=== PATIENT | female | born 1980 | race Caucasian/White ===

== ENCOUNTER 2020-09-09 06:42 | Observation (INO) | payer BC, SELFPAY ==
[2020-09-09] VITALS (10 sets, daily range): BP systolic 116–178; BP diastolic 61–86; PULSE 65–88; RESP 16–22; TEMP 36.6–36.8; O2SAT 94–100; BMI 47.9; BMI 48.6
--- NOTE | 2020-09-09 07:12 | CT_ITS ---
PROCEDURE: CT ABDOMEN PELVIS W CON CLINICAL INDICATION: pain Mid epigastric pain COMPARISON: CT ABDPELW/O CT ABD PELVIS W/O CONTRAST from 01/02/2017 TECHNIQUE: IV Contrast: 75ML Isovue 370 Oral Contrast None Axial images obtained with sagittal and coronal reformats. All CT scans at the facility use one or more dose reduction, viz: automated exposure control, ma/kV adjustment per patient size (including targeted exams where dose is matched to indication, i.e. head), or iterative reconstruction technique. FINDINGS: LOWER THORAX: There are scattered sub cm pulmonary nodules in the right middle lobe and both lower lobes.. The nodules measure up to 7 mm which is in the lingula and appears slightly more prominent compared to 01/02/2017. The right middle lobe nodules were not imaged on the previous exam. ABDOMEN & PELVIS: There are gallstones present. The gallbladder is slightly distended. The spleen, adrenal glands, and pancreas have an unremarkable appearance. No renal or ureteral calculi. The left kidney is somewhat smaller than the right kidney but the cortex is well preserved. The right kidney measures 11 cm cephalad caudad in the left kidney measures 8 cm cephalad caudad. No hydronephrosis. No ureteral calculi. There is some cortical scarring of the left kidney laterally. No evidence of appendicitis. No intestinal obstruction or free air. There are bilateral ovarian cysts measuring 6 cm on the left. There is a tubular density in the right adnexa. This could be related to a elongated ovarian cyst at 7 by 2.4 cm however, dilated fallopian tube/hydrosalpinx is also considered. This is slightly more prominent when compared to the previous exam. No evidence of diverticulitis. Pelvic ultrasound may provide further evaluation. No stranding of the fat in this area. No pelvic free fluid apparent. There is grade 1 spondylitic spondylolisthesis of L5 on S1 with degenerative disc disease at that level. No acute bony findings. IMPRESSION: 1. Scattered sub cm pulmonary nodules. Nonemergent chest CT may provide further evaluation. 2. No evidence of appendicitis obstructing ureteral calculus or diverticulitis. 3. Possible right-sided hydrosalpinx. Pelvic ultrasound may provide further evaluation. 4. 6 cm left ovarian cyst 5. Cholelithiasis with mildly distended gallbladder Dictated by: Kyaw Almonte MD 09/09/2020 08:36 Kyaw Almonte MD in [place] 09/09/2020 08:36
[2020-09-09 07:16] LABS: Microscopic, Urine URINE MICROSCOPIC (MICROSCOPIC)
[2020-09-09 07:20] LABS: Basophils # 0.1 K/mm3 (0-0.2); Basophils % 0.7 % (0.1-2.0); Eosinophils # 0.3 K/mm3 (0.0-0.4); Eosinophils % 2.9 % (0.1-12.0); Hematocrit 40.9 % (37.0-47.0); Hemoglobin 13.2 g/dL (12.2-16.2); Lymphocytes # 2.1 K/mm3 (0.7-4.5); Lymphocytes % 21.8 % (10-50); Mean Corpuscular HGB Conc 32.4 g/dL (31.8-35.4); Mean Corpuscular Hemoglobin 28.5 pg (27.0-31.2); Mean Platelet Volume 7.8 fl (7.4-10.4); Monocytes # 0.4 K/mm3 (0.1-1.0); Monocytes % 3.8 % (1.7-9.3); Neutrophils # 6.8 K/mm3 (1.8-7.8); Neutrophils % 70.8 % (37.0-80.0); Platelet Count 300 K/mm3 (142-424); Red Blood Count 4.65 M/mm3 (4.20-5.40); White Blood Count 9.6 K/mm3 (4.8-10.8)
[2020-09-09 07:24] LABS: Appearance,Urine CLEAR (Clear); Bilirubin,Urine Negative (Negative); Blood, Urine Negative (Negative); Color,Urine YELLOW (Yellow); Glucose,Urine (UA) Negative (Negative); Ketones,Urine TRACE (Negative); Leukocyte Esterase,Urine Negative (Negative); Nitrate,Urine Negative (Negative); Protein,Urine Negative (Negative); Urobilinogen,Urine 0.2 EU/dl (0.2)
[2020-09-09 07:26] LABS: Alanine Aminotransferase 31 U/L (12-78); Albumin Level 4.6 g/dl (3.5-5.0); Albumin/Globulin Ratio 1.2 (1.1-1.8); Alkaline Phosphatase 76 U/L (38-126); Amylase 68 U/L (30-110); Anion Gap 8.2 mEq/L (5-15); Aspartate Amino Transferase 27 U/L (14-36); Bilirubin,Total 0.3 mg/dl (0.2-1.3); Blood Urea Nitrogen 13 mg/dl (7-17); Calcium 9.7 mg/dl (8.4-10.2); Carbon Dioxide 28 mmol/L (22.0-30.0); Chloride 101 mmol/L (98-107); Creatinine Clearance Estimated 83 mL/min (50-200); Estimated Glomerular Filt Rate 69 ml/min (>60); GFR (African American) 83 ML/MIN (>60); Globulin 3.7 g/dL (1.3-3.2); Glucose 118 mg/dl (74-100); Lipase 132 U/L (23-300); Potassium 3.2 mmoL/L (3.5-5.1); Sodium 134 mmol/L (136-145); Total Protein,Serum 8.3 g/dl (6.3-8.2)
[2020-09-09 07:31] LABS: RBC,Urine Occasional #/hpf (0-3)
[2020-09-09 07:55] LABS: Urine Pregnancy, HCG Qual. Negative (Negative)
--- NOTE | 2020-09-09 08:00 | HMH.EDGENADL ---
ED Disposition Clinical Impression: Gallstones and inflammation of gallbladder without obstruction Disposition: Admitted as Observation Condition on Discharge: Fair Instructions: DI for Acute Abdominal Pain Referrals: Alondra Welch [Primary Care Provider] - - Critical Care Critical Care Time: No Attestation: On 09/09/20, the high probability of a clinically significant, sudden or life threatening deterioration of the following system(s) required my full and direct attention, intervention and personal management. The time I documented below is in addition to time spent performing reported procedures but includes the following listed in this critical care notation. Medical Decision Making - Medical Records Medical records reviewed: Yes: I reviewed the patient's medical records. - Kt Inquiry Pt receiving controlled substance: Yes Kt was queried for this patient: Yes Reference #:: [id number] Reason not queried -: Emergent pt cond-no time Risks and benefits of using a controlled substance: were discussed with pt by me Vital Signs: 09/09/20 06:44 09/09/20 07:44 09/09/20 08:21 Temperature 97.9 F Temperature Source Oral Pulse Rate [Left Radial] 74 81 72 Respiratory Rate 18 20 18 Blood Pressure [Right Arm] 159/86 H 178/71 H 116/72 Blood Pressure Mean [Right Arm] 110 106 86 Blood Pressure Source [Right Arm] Automatic Cuff Blood Pressure Position [Right Arm] Sitting 02 Sat by Pulse Oximetry 98 97 100 Oxygen Delivery Method Room Air 09/09/20 08:30 09/09/20 09:00 09/09/20 10:30 Temperature Temperature Source Pulse Rate [Left Radial] 88 81 81 Respiratory Rate 22 18 16 Blood Pressure [Right Arm] 162/71 H 139/80 133/71 Blood Pressure Mean [Right Arm] 101 99 91 Blood Pressure Source [Right Arm] Blood Pressure Position [Right Arm] Supine 02 Sat by Pulse Oximetry 100 98 98 Oxygen Delivery Method - Lab Data Lab Results 09/09/20 06:50: WBC 9.6, RBC 4.65, Hgb 13.2, Hct 40.9, MCV 88.0, MCH 28.5, MCHC 32.4, RDW 16.0, Plt Count 300, MPV 7.8, Neut % (Auto) 70.8, Lymph % (Auto) 21.8, [place] % (Auto) 3.8, Eos % (Auto) 2.9, Baso % (Auto) 0.7, Neut # (Auto) 6.8, Lymph # (Auto) 2.1, [place] # (Auto) 0.4, Eos # (Auto) 0.3, Baso # (Auto) 0.1 09/09/20 06:50: Sodium 134 L, Potassium 3.2 L, Chloride 101, Carbon Dioxide 28, Anion Gap 8.2, BUN 13, Creatinine 0.90, Estimated Creat Clear 83, Estimated GFR 69, Est GFR ( Amer) 83, Glucose 118 H, Calcium 9.7, Total Bilirubin 0.3, AST 27, ALT 31, Alkaline Phosphatase 76, Total Protein 8.3 H, Albumin 4.6, Globulin 3.7 H, Albumin/Globulin Ratio 1.2, Amylase 68, Lipase 132 09/09/20 06:53: Urine Color Yellow, Urine Appearance Clear, Urine pH 6.0, Ur Specific [place] 1.020, Urine Protein Negative, Urine Glucose (UA) Negative, Urine Ketones Trace, Urine Blood Negative, Urine Nitrate Negative, Urine Bilirubin Negative, Urine Urobilinogen 0.2, Ur Leukocyte Esterase Negative, Urine RBC Occasional, Urine WBC 3-5, Ur Squamous Epith Cells 3-5 09/09/20 06:53: Urine HCG, Qual Negative Result diagrams: 09/09/20 06:50 09/09/20 06:50 Orders (Tests/Meds): ED MEDICATIONS Generic Name Dose Route Start Last Admin Trade Name Freq PRN Reason Stop Dose Admin Lactated Ringer's 1,000 mls @ 150 mls/hr 09/09/20 11:00 Lactated Ringer's 1000 Ml Bag IV 10/09/20 10:59 .[id number] [facility] Ibuprofen 600 mg 09/09/20 10:49 Ibuprofen 600 Mg Tablet PO 10/09/20 10:48 Q6HP PRN As Needed for Fever or Pain Morphine Sulfate 4 mg 09/09/20 10:49 Morphine 4mg/Ml Syringe IV 10/09/20 10:48 Q4HP PRN Breakthru Severe Pain Oxycodone/Acetaminophen 1 each 09/09/20 10:45 Oxycodone 5mg W/Apap 325mg Tablet PO 10/09/20 10:44 Q4HP PRN Break[place]ru Moderate Pain Discontinued Medications Generic Name Dose Route Start Last Admin Trade Name Freq PRN Reason Stop Dose Admin Belladonna Alkaloids 60 ml 09/09/20 07:13 09/09/20 07:26 Gi Cocktail 60ml Udc
--- NOTE | 2020-09-09 08:44 | US_ITS ---
PROCEDURE: US ABDOMEN LIMITED CLINICAL INDICATION: RUQ pain with gallstones r/o cholecystitis COMPARISON: CT CT ABDOMEN PELVIS W CON from 09/09/2020 FINDINGS: PANCREAS: Unremarkable. No obvious mass or abnormal fluid collection. No ductal dilatation LIVER: No focal liver lesions demonstrated. Homogeneous echogenicity. No intrahepatic biliary ductal dilatation evident. There is appropriate direction of blood flow within a non dilated portal vein RIGHT KIDNEY: Unremarkable. Normal size and echogenicity. No hydronephrosis GALLBLADDER: There are multiple gallstones present. No gallbladder wall thickening, pericholecystic fluid, or biliary dilatation is evident. Common bile duct is normal at 4 mm. Gallbladder is slightly distended. Technologist reports a positive sonographic Mccurdy's. IMPRESSION: Mildly distended gallbladder with multiple stones Dictated by: Kyaw Almonte MD 09/09/2020 10:24 Kyaw Almonte MD in [place] 09/09/2020 10:24
--- NOTE | 2020-09-09 11:18 | HMH.GSHP ---
HPI HPI: This is a 40-year-old female who presented to the emergency department with increasing pain in the upper abdomen. She has a known history of gallstones and was concerned about a possible flareup . No jaundice. No fevers. HPI from emergency department evaluation is forwarded below. Forwarded from Emergency Department evaluation: General Adult HPI - General Chief complaint: Abdominal Pain Stated complaint: stomach ache Time Seen by Provider: 09/09/20 08:10 Mode of Arrival: Ambulatory Limitations: No Limitations Description of Symptoms (Recalled from ER Triage Doc. by RN): Pt states that 4 this morning she started with upper gastric pain after eating some bad food. She has a hx of gallstones and feels that maybe they are flarred up. - History of Present Illness HPI narrative: Patient is a 40-year-old female history of obesity, gallstones presented with abdominal pain. 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 She states she has had pain like this in the past but usually it subsides. This evening the pain was much worse described as colicky and sharp. She denies any history of surgery on her belly. She continues to pass gas. No fever/chills. She does not believe she is /no urinary symptoms. [facility] History Medical History: Reports:: Gall Bladder Disease Denies:: Atherosclerotic Heart Disease, Diabetes Mellitus Type 1, Diabetes Mellitus Type 2 *Have you ever received a pneumonia vaccine?: No *Have you received a flu vaccine this season?: No Other Surgeries: Yes: No Previous Surgery Amputation: No Fractures: No - *Social History Last grade of school completed: High school graduate Smoking Status: Former smoker Alcohol Intake: current Alcohol Intake Frequency:: holidays/special occasions only Substance Use Type: denies use *Occupational Status:: employed *Travel in the last 8 weeks: None Family Hx:: Non-contributory Review of Systems - Constitutional Denies chills - Eyes Denies change in vision - ENT Denies difficulty swallowing - *Cardiovascular Denies chest pain - *Respiratory Denies cough - *Gastrointestinal Reports abdominal pain, Reports nausea - *Genitourinary Denies blood in urine - *Musculoskeletal Denies tingling - Integumentary/Breasts Denies lesions - *Neurologic Denies confusion - Psychiatric Denies anxiety, Denies depression - Endocrine Denies cold intolerance - Hematologic/Lymphatic Denies easy bleeding - Allergic/Immunologic Denies wheezing Meds Home Medications Medication Instructions Recorded Confirmed Type Buspirone HCl [Buspirone 15 mg 15 mg PO BID 09/09/20 09/09/20 History Tablets] Allergies Allergy/AdvReac Type Severity Reaction Status Date / Time No Known Allergies Allergy Unverified 06/27/17 14:35 Exam Vital signs and Labs for Last 24 Hours: Temp Pulse Resp BP Pulse Ox 97.9 F 81 16 133/71 98 09/09/20 06:44 09/09/20 10:30 09/09/20 10:30 09/09/20 10:30 09/09/20 10:30 Laboratory Results - last 24 hr 09/09/20 06:50: WBC 9.6, RBC 4.65, Hgb 13.2, Hct 40.9, MCV 88.0, MCH 28.5, MCHC 32.4, RDW 16.0, Plt Count 300, MPV 7.8, Neut % (Auto) 70.8, Lymph % (Auto) 21.8, [place] % (Auto) 3.8, Eos % (Auto) 2.9, Baso % (Auto) 0.7, Neut # (Auto) 6.8, Lymph # (Auto) 2.1, [place] # (Auto) 0.4, Eos # (Auto) 0.3, Baso # (Auto) 0.1 09/09/20 06:50: Sodium 134 L, Potassium 3.2 L, Chloride 101, Carbon Dioxide 28, Anion Gap 8.2, BUN 13, Creatinine 0.90, Estimated Creat Clear 83, Estimated GFR 69, Est GFR ( Amer) 83, Glucose 118 H, Calcium 9.7, Total Bilirubin 0.3, AST 27, ALT 31, Alkaline Phosphatase 76, Total Protein 8.3 H, Albumin 4.6, Globulin 3.7 H, Albumin/Globulin Ratio 1.2, Amylase 68, Lipase 132 09/09/20 06:53: Urine Color Yellow, Urine Appearance Clear, Urine pH 6.0, Ur Specific [place] 1.020, Urine Protein Negative,
[2020-09-09 11:33] LABS: Adenovirus,PCR Not Detected (NotDetected); Bordetella Pertussis Not Detected (NotDetected); Chlamydophila Pneumoniae, PCR Not Detected (NotDetected); Coronavirus 19, PCR Not Detected (NotDetected); Coronavirus 229E Not Detected (NotDetected); Coronavirus NL63 Not Detected (NotDetected); Coronavirus OC43 Not Detected (NotDetected); Coronovirus HKU1,PCR Not Detected (NotDetected); Human Metapneumovirus Not Detected (NotDetected); Influenza A, PCR Not Detected (NotDetected); Influenza AH1, 2009 Not Detected (NotDetected); Influenza AH1, PCR Not Detected (NotDetected); Influenza AH3,PCR Not Detected (NotDetected); Influenza B, PCR Not Detected (NotDetected); Mycoplasma Pneumoniae, PCR Not Detected (NotDetected); Parainfluenza 1, PCR Not Detected (NotDetected); Parainfluenza 2, PCR Not Detected (NotDetected); Parainfluenza 3, PCR Not Detected (NotDetected); Parainfluenza 4, PCR Not Detected (NotDetected); Respiratory Syncytial Virus Not Detected (NotDetected); Rhinovirus/Enterovirus Not Detected (NotDetected)
--- NOTE | 2020-09-09 14:28 | PC.NURSE ---
Report called on pt
--- NOTE | 2020-09-09 15:16 | P.CONPHA_ITS ---
[facility] Pharmacy VTE Monitoring - Patient Demographics Admission date: 09/09/20 Report Date: 09/09/20 Time: 15:16 Allergies/Adverse Reactions: Patient Allergies No Known Allergies Allergy (Unverified 06/27/17 14:35) Height: 1.73 m Weight: 145.15 kg Patient Problems: Current Active Problems Gallstones and inflammation of gallbladder without obstruction (Acute) - VTE Risk Labs: VTE Related Lab Results Hgb 13.2 g/dL (12.2-16.2) 09/09/20 06:50 Hct 40.9 % (37.0-47.0) 09/09/20 06:50 Plt Count 300 K/mm3 (142-424) 09/09/20 06:50 BUN 13 mg/dl (7-17) 09/09/20 06:50 Creatinine 0.90 mg/dl (0.52-1.04) 09/09/20 06:50 Estimated Creat Clear 83 mL/min (50-200) 09/09/20 06:50 - Prophylaxis VTE Prophylaxis Ordered?: Yes Types of VTE Prophylaxis: TEDS Knee High Location of Applied Device: Bilateral Lower Extremeties
--- NOTE | 2020-09-10 02:51 | PC.NURSE ---
PT IS RESTING IN BED. PT HAS ONLY NEEDED PAIN MEDICATION X1 THIS SHIFT. PT RATED THE PAIN 4/10 IN THE EPIGASTRIC REGION. LUNG SOUNDS CLEAR. ABDOMEN SOFT/LARGE/NON TENDER WITH HYPOACTIVE BOWEL SOUNDS. PT HAS BEEN AMBULATING TO THE BATHROOM. TOLERATED SIPS OF WATER ALL THE WAY UP TO MIDNIGHT W/O NAUSEA/VOMITING. VSS. WILL CONTINUE TO MONITOR.
[2020-09-10 04:00] VITALS: BP 138/68; PULSE 83; RESP 17; TEMP 36.8; O2SAT 99
--- NOTE | 2020-09-10 06:45 | P.PN_ITS ---
Subjective Patient reports: feels better Progress Note: A&P (1) Symptomatic cholelithiasis Status: Acute Assessment and plan: Dramatically improved versus initial presentation. She wishes to be discharged home with outpatient follow-up. She states that she does wish to ultimately have a cholecystectomy; however, is considering losing more weight first . Exam Vital signs and Labs for Last 24 Hours: Temp Pulse Resp BP Pulse Ox 98.3 F 83 17 138/68 99 09/10/20 04:00 09/10/20 04:00 09/10/20 04:00 09/10/20 04:00 09/10/20 04:00 Laboratory Results - last 24 hr 09/09/20 06:50: WBC 9.6, RBC 4.65, Hgb 13.2, Hct 40.9, MCV 88.0, MCH 28.5, MCHC 32.4, RDW 16.0, Plt Count 300, MPV 7.8, Neut % (Auto) 70.8, Lymph % (Auto) 21.8, [place] % (Auto) 3.8, Eos % (Auto) 2.9, Baso % (Auto) 0.7, Neut # (Auto) 6.8, Lymph # (Auto) 2.1, [place] # (Auto) 0.4, Eos # (Auto) 0.3, Baso # (Auto) 0.1 09/09/20 06:50: Sodium 134 L, Potassium 3.2 L, Chloride 101, Carbon Dioxide 28, Anion Gap 8.2, BUN 13, Creatinine 0.90, Estimated Creat Clear 83, Estimated GFR 69, Est GFR ( Amer) 83, Glucose 118 H, Calcium 9.7, Total Bilirubin 0.3, AST 27, ALT 31, Alkaline Phosphatase 76, Total Protein 8.3 H, Albumin 4.6, Globulin 3.7 H, Albumin/Globulin Ratio 1.2, Amylase 68, Lipase 132 09/09/20 06:53: Urine Color Yellow, Urine Appearance Clear, Urine pH 6.0, Ur Specific [place] 1.020, Urine Protein Negative, Urine Glucose (UA) Negative, Urine Ketones Trace, Urine Blood Negative, Urine Nitrate Negative, Urine Bilirubin Negative, Urine Urobilinogen 0.2, Ur Leukocyte Esterase Negative, Urine RBC Occasional, Urine WBC 3-5, Ur Squamous Epith Cells 3-5 09/09/20 06:53: Urine HCG, Qual Negative 09/09/20 11:00: Chlamy pneumoniae PCR Not detected, Adenovirus (PCR) Not detected, B. pertussis DNA (PCR) Not detected, Coronavirus OC43 (PCR) Not detected, Coronavirus HKU1 (PCR) Not detected, Coronavirus 229E (PCR) Not detected, SARS-CoV-2 (PCR) Not detected, Coronavirus NL63 (PCR) Not detected, Hu man Metapneumovir PCR Not detected, Influenza A (H1) PCR Not detected, Influ A (H1N1/09) PCR Not detected, Influenza A (H3) PCR Not detected, Influenza Type A (PCR) Not detected, Influenza Type B (PCR) Not detected, M. pneumoniae (PCR) Not detected, Parainfluenza 1 (PCR) Not detected, Parainfluenza 2 (PCR) Not detected, Parainfluenza 3 (PCR) Not detected, Parainfluenza 4 (PCR) Not detected, RSV (PCR) Not detected, Entero/Rhino (PCR) Not detected I & O for Last 24 hours: Intake & Output 09/07/20 09/08/20 09/09/20 09/10/20 11:59 11:59 11:59 11:59 Intake Total 1066 / 1066 Balance 1066 / 1066 Weight 315 lb 320 lb - Constitutional no acute distress - *Routine Respiratory Exam Absent: respiratory distress - *Routine Cardiovascular Exam Present: RRR - *Routine Abdominal Exam Present: soft Comments: Minimal epigastric tenderness
[2020-09-10 07:01] LABS: Basophils % 0.6 % (0.1-2.0); Eosinophils # 0.2 K/mm3 (0.0-0.4); Eosinophils % 2.7 % (0.1-12.0); Hematocrit 37.3 % (37.0-47.0); Hemoglobin 12.1 g/dL (12.2-16.2); Lymphocytes # 1.4 K/mm3 (0.7-4.5); Lymphocytes % 21.3 % (10-50); Mean Corpuscular HGB Conc 32.3 g/dL (31.8-35.4); Mean Corpuscular Hemoglobin 28.3 pg (27.0-31.2); Mean Corpuscular Volume 87.7 fl (81-99); Mean Platelet Volume 8.9 fl (7.4-10.4); Monocytes # 0.3 K/mm3 (0.1-1.0); Monocytes % 5.2 % (1.7-9.3); Neutrophils # 4.6 K/mm3 (1.8-7.8); Neutrophils % 70.3 % (37.0-80.0); Platelet Count 247 K/mm3 (142-424); Red Blood Count 4.26 M/mm3 (4.20-5.40); Red Cell Distribution Width 16.1 % (11.5-17.5); White Blood Count 6.6 K/mm3 (4.8-10.8)
[2020-09-10 07:09] LABS: Alanine Aminotransferase 21 U/L (12-78); Albumin Level 3.4 g/dl (3.5-5.0); Albumin/Globulin Ratio 1.1 (1.1-1.8); Alkaline Phosphatase 62 U/L (38-126); Anion Gap 9.6 mEq/L (5-15); Aspartate Amino Transferase 21 U/L (14-36); Bilirubin,Total 0.4 mg/dl (0.2-1.3); Blood Urea Nitrogen 5 mg/dl (7-17); Calcium 8.9 mg/dl (8.4-10.2); Carbon Dioxide 26 mmol/L (22.0-30.0); Chloride 106 mmol/L (98-107); Creatinine Clearance Estimated 107 mL/min (50-200); Estimated Glomerular Filt Rate 92 ml/min (>60); GFR (African American) 112 ML/MIN (>60); Globulin 3.2 g/dL (1.3-3.2); Glucose 103 mg/dl (74-100); Potassium 3.6 mmoL/L (3.5-5.1); Sodium 138 mmol/L (136-145); Total Protein,Serum 6.6 g/dl (6.3-8.2)
[2020-09-10 07:58] VITALS: BP 100/68; PULSE 86; RESP 16; TEMP 37.1; O2SAT 98
--- NOTE | 2020-09-10 13:14 | HMH.DCSUM ---
General - General Admission date:: 09/09/20 Discharge date: 09/10/20 HPI HPI: This is a 40-year-old female who presented to the emergency department with increasing pain in the upper abdomen. She has a known history of gallstones and was concerned about a possible flareup . No jaundice. No fevers. HPI from emergency department evaluation is forwarded below. Forwarded from Emergency Department evaluation: General Adult HPI - General Chief complaint: Abdominal Pain Stated complaint: stomach ache Time Seen by Provider: 09/09/20 08:10 Mode of Arrival: Ambulatory Limitations: No Limitations Description of Symptoms (Recalled from ER Triage Doc. by RN): Pt states that 4 this morning she started with upper gastric pain after eating some bad food. She has a hx of gallstones and feels that maybe they are flarred up. Hospital Course Hospital Course: The patient was admitted to the surgical service for ongoing observation. She remained afebrile with stable and normal vital signs. Her pain quickly abated and her diet was slowly advanced. She was deemed appropriate for discharge on the afternoon of September 10, 2020. The patient stated that she did not wish to undergo cholecystectomy quite yet . She understands the likelihood of recurrent symptomatology; however, was hoping to lose quite a bit of weight first . Objective Vital signs: Temp Pulse Resp BP Pulse Ox 98.8 F 86 16 100/68 L 98 09/10/20 07:58 09/10/20 07:58 09/10/20 07:58 09/10/20 07:58 09/10/20 07:58 no acute distress - *Routine HEENT Exam Head: Present: normocephalic Eye: Present: EOMI ENT: Present: mucous membranes moist - *Routine Neck Exam Present: full ROM - Routine Chest/Breast/Axilla Exam Chest wall: Absent: tenderness - *Routine Respiratory Exam Absent: respiratory distress - *Routine Cardiovascular Exam Present: RRR - *Routine Abdominal Exam Present: soft, obese. Absent: rebound, guarding Comments: Minimal tenderness to deep palpation in the epigastric region. - *Routine Rectal Exam Patient deferred: visual exam - *Routine Exam Patient deferred: external exam - *Routine Extremities Exam Present: full ROM - Routine Back/Spine/Pelvis Exam Back/Spine: Present: full ROM - *Routine Skin Exam Present: intact - *Routine Neurological Exam Present: alert - Routine Psychiatric Exam Present: normal affect Results Labs on day of discharge: Labs from last 24 hours 09/10/20 09/10/20 09/09/20 06:40 06:40 11:00 WBC 6.6 D RBC 4.26 Hgb 12.1 L Hct 37.3 MCV 87.7 MCH 28.3 MCHC 32.3 RDW 16.1 Plt Count 247 MPV 8.9 Neut % (Auto) 70.3 Lymph % (Auto) 21.3 [place] % (Auto) 5.2 Eos % (Auto) 2.7 Baso % (Auto) 0.6 Neut # (Auto) 4.6 Lymph # (Auto) 1.4 [place] # (Auto) 0.3 Eos # (Auto) 0.2 Baso # (Auto) 0.0 Sodium 138 Potassium 3.6 Chloride 106 Carbon Dioxide 26 Anion Gap 9.6 BUN 5 L D Creatinine 0.70 D Estimated Creat Clear 107 Estimated GFR 92 Est GFR ( Amer) 112 D Glucose 103 H Calcium 8.9 Total Bilirubin 0.4 AST 21 ALT 21 D Alkaline Phosphatase 62 Total Protein 6.6 Albumin 3.4 L D Globulin 3.2 Albumin/Globulin Ratio 1.1 Chlamy pneumoniae PCR Not detected Adenovirus (PCR) Not detected B. pertussis DNA (PCR) Not detected Coronavirus OC43 (PCR) Not detected Coronavirus HKU1 (PCR) Not detected Coronavirus 229E (PCR) Not detected SARS-CoV-2 (PCR) Not detected Coronavirus NL63 (PCR) Not detected Human Metapneumovir PCR Not detected Influenza A (H1) PCR Not detected Influ A (H1N1/09) PCR Not detected Influenza A (H3) PCR Not detected Influenza Type A (PCR) Not detected Influenza Type B (PCR) Not detected M. pneumoniae (PCR) Not detected Parainfluenza 1 (PCR) Not detected Parainfluenza 2 (PCR) Not detected
== END 2020-09-10 15:00 | disposition home or self-care (01) ==
LOC: ER 10:53 → 2ND 13:44
PROVIDERS: Emergency Medicine; Admitting Provider Surgery; Emergency Provider Emergency Medicine; PCP Nurse Practitioner Family; Visit Provider Surgery
DX: K80.20 Calculus of gallbladder without cholecystitis without obstruction (principal)
CPT/HCPCS: 36415; 74177; 76705; 80053; 81001; 81025; 82150; 83690; 85025; 87581; 87633; 87798; 96365; 96375; 96376; 99285; G0378; J2405; Q9967

== ENCOUNTER 2023-07-09 15:28 | Emergency (ER) | payer BC, SELFPAY ==
[2023-07-09 16:10] VITALS: BP 138/94; PULSE 88; RESP 18; TEMP 36.6; O2SAT 95; BMI 54.7
--- NOTE | 2023-07-09 16:14 | ED_ITS ---
Discharge Plan Disposition Patient Disposition: Home, Self-Care Condition: Good Prescriptions Prescriptions: New azithromycin [Zithromax] 250 mg tablet 250 mg PO UD DOSE PK Qty: 6 0RF Rx Instructions: Take two (2) tablets today, then one (1) tablet days #2 thru #5 methylprednisolone 4 mg Tablets,Dose Pack 4 mg PO DIRECTED 6 Days Qty: 21 0RF Rx Instructions: Take 1 pack as directed for 6 days benzonatate [benzonatate] 100 mg capsule 100 mg PO TIDP PRN (Reason: Cough) Qty: 30 0RF Referrals Follow up/Referrals: Provider,Referral, MD [Primary Care Provider] - See instructions Activity Restrictions/Add. Instructions Additional Instructions/Restrictions: Drink plenty of fluids. Take tylenol or ibuprofen for pain or fever. Take the medications as directed. Follow up with your regular doctor. GO TO THE ER FOR ANY WORSENING SYMPTOMS Clinical Impressions Clinical Impression: Acute viral syndrome, Bronchitis Instructions Patient Instructions: DI for Viral Syndrome Discharge ED Provider: Melvin Knight [facility] General Stated complaint: weak, cough, chest tisha Time Seen by Provider: 07/09/23 16:14 History of Present Illness Provider Complaint: She states that for the past 3 days she has had chills, body aches and a cough. Related Data Previous Rx's Medication Instructions Recorded azithromycin 250 mg tablet 250 mg PO UD DOSE PK #6 tabs 07/09/23 (Zithromax) benzonatate 100 mg capsule 100 mg PO TIDP PRN Cough #30 caps 07/09/23 methylprednisolone 4 mg tablets in 4 mg PO DIRECTED 6 days #21 tabs 07/09/23 a dose pack Allergies Allergy/AdvReac Type Severity Reaction Status Date / Time No Known Allergies Allergy Verified 07/09/23 16:21 [facility] Disclaimer: The information contained in this section may have been updated after the patient was seen, as this information can be updated by other users. Social History Smoking Status: Former smoker alcohol intake: never substance use type: denies use current occupational status: employed Travel in the last 8 weeks: None housing: house current occupation: Factory Work ROS Obtained: Yes All systems reviewed & no additional complaints except as documented Constitutional Constitutional: Reports chills and Denies fever(s) Eyes Eyes: Denies eye discharge ENT Ears, Nose, Mouth, and Throat: Reports as per HPI Cardiovascular Cardiovascular: Denies chest pain Respiratory Respiratory: Denies chest congestion and Reports cough Gastrointestinal Gastrointestingal: Reports nausea; Denies abdominal pain, constipation, cramping, diarrhea or vomiting Musculoskeletal Musculoskeletal: Denies arthralgias Integumentary/Breasts Skin/Breast: Denies rash Neurologic Neurologic: Denies paresthesias Physical Exam General General appearance: alert and in no apparent distress Head Head exam: atraumatic, normocephalic and normal inspection Eye Eye exam: Present normal appearance, PERRL and EOMI ENT ENT exam: Present normal exam, normal oropharynx, mucous membranes moist, TM's normal bilaterally and normal external ear exam Neck Neck exam: Present normal inspection, full ROM and trachea midline; Absent meningismus or lymphadenopathy Chest Chest inspection: Present normal inspection and symmetric chest wall rise; Absent tenderness Respiratory Respiratory exam: Present normal lung sounds bilaterally; Absent respiratory distress Cardiovascular Cardiovascular exam: Present regular rate and normal rhythm; Absent JVD Abdominal Exam Abdominal exam: Present soft and normal bowel sounds; Absent distention, tenderness or guarding Extremities Exam Extremities exam: Present normal inspection, full ROM and normal capillary refill; Absent calf tenderness Back Exam Back exam: Present normal inspection; Absent tenderness Neurological Exam Neurological exam: Present alert and oriented X3 Psychiatric Psychiatric exam: Present normal affect and normal mood Skin Skin exam: Present warm, dry, intact and normal color Lymphatic Lymphatic Findings: no adenopathy Medical Decision Making Medical Records Medical records reviewed: No I reviewed the patient's medical records. Kt Inquiry Pt receiving controlled substance: No Lab Data Lab results reviewed: Yes I reviewed the patient's lab results.
[2023-07-09 16:38] LABS: UTC Influenza A Antigen Negative (Negative); UTC Influenza B Antigen Negative (Negative)
[2023-07-09 17:04] VITALS: BP 138/94; PULSE 88; RESP 18; TEMP 36.6; O2SAT 95
== END 2023-07-09 17:04 | disposition home or self-care (01) ==
PROVIDERS: Emergency Provider Nurse Practitioner Family
DX: J20.9 Acute bronchitis, unspecified (principal); B34.9 Viral infection, unspecified; R05.9 Cough, unspecified; R68.83 Chills (without fever); R09.89 Other specified symptoms and signs involving the circulatory and respiratory systems
CPT/HCPCS: 87635; 87804; 99204; 99212; G0463

== ENCOUNTER 2023-07-20 14:54 | Outpatient (CLI) | payer BC, SELFPAY ==
--- NOTE | 2023-07-20 14:59 | XR_ITS ---
FINAL REPORT CLINICAL HISTORY: PAIN IN ANTERIOR RT AND LT KNEES, SWELLING COMPARISON: None FINDINGS: Three views of the left knee reveal no evidence of fracture or dislocation. The bony alignment is normal. There is mild degenerative change. There is a small joint effusion. No localized soft tissue abnormality is seen. IMPRESSION: Small joint effusion without acute bony abnormality. Mild degenerative change. Reviewed, Interpreted and Dictated by Sae Lui III, MD Transcribed by Alondra Addison Authenticated and [facility]
--- NOTE | 2023-07-20 14:59 | XR_ITS ---
FINAL REPORT CLINICAL HISTORY: PAIN IN ANTERIOR RT AND LT KNEES, SWELLING COMPARISON: None FINDINGS: Three views of the right knee reveal no evidence of fracture or dislocation. The bony alignment is normal. There is mild degenerative change. Medial compartment narrowing is noted. There is no evidence of joint effusion. No localized soft tissue abnormality is identified. IMPRESSION: Mild degenerative change without acute abnormality identified. Reviewed, Interpreted and Dictated by Sae Lui III, MD Transcribed by Alondra dAdison Authenticated and . [facility]
== END 2023-07-20 23:59 ==
PROVIDERS: PCP Nurse Practitioner Family; Visit Provider Nurse Practitioner Family
DX: M25.561 Pain in right knee (principal); M25.562 Pain in left knee
CPT/HCPCS: 73562